=== PATIENT | male | born 1995 | race Caucasian/White ===

== ENCOUNTER 2024-08-20 19:14 | Inpatient (IN) | payer MEDICARE, MEDICAID ==
[~2024-08-20] VITALS: Ht 175.3 cm; Wt 159.0 kg
[2024-08-20 20:12] LABS: HEMATOCRIT 42.7 % (42.0-52.0); HEMOGLOBIN 14.5 g/dl (13.5-17.5); MEAN CORPUSCULAR HEMOGLOBIN 29.7 pg (27.0-33.0); MEAN CORPUSCULAR VOLUME 87.3 fl (80.0-96.0); PLATELET COUNT, AUTOMATED 311 10^3/uL (150-450); RED BLOOD COUNT 4.89 10^6/uL (4.30-6.10); WHITE BLOOD COUNT 11.5 10^3/uL (4.0-10.0)
[2024-08-20 20:22] LABS: METHADONE URINE NEGATIVE (NEGATIVE); OPIATES URINE NEGATIVE (NEGATIVE)
[2024-08-20 20:23] LABS: AMPHETAMINES LEVEL URINE NEGATIVE (NEGATIVE); BARBITURATES URINE NEGATIVE (NEGATIVE); BENZODIAZEPINES URINE NEGATIVE (NEGATIVE); COCAINE METABOLITE URINE NEGATIVE (NEGATIVE); PHENCYCLIDINE URINE NEGATIVE (NEGATIVE)
[2024-08-20 20:24] LABS: CANNABINOIDS URINE POSITIVE (NEGATIVE)
[2024-08-20 20:25] LABS: ETHYL ALCOHOL (ETHANOL) < 0.003 % (0.000-0.010)
[2024-08-20 20:26] LABS: SALICYLATE LEVEL < 3.0 MG/DL (<30)
[2024-08-20 20:27] LABS: ALBUMIN 3.6 G/DL (3.2-5.2); ALKALINE PHOSPHATASE 78 U/L (40-129); ALT/SGPT 40 U/L (7.0-40); AST/SGOT 26 U/L (<34); BILIRUBIN,DIRECT 0.4 MG/DL (<0.4); BILIRUBIN,TOTAL 1.4 MG/DL (0.3-1.2); BLOOD UREA NITROGEN 18 MG/DL (9-23); CALCIUM LEVEL 9.3 MG/DL (8.5-10.1); CARBON DIOXIDE LEVEL 26 MMOL/L (20-31); CHLORIDE LEVEL 105 MMOL/L (98-107); CREATININE FOR GFR 0.85 MG/DL (0.70-1.30); GLOMERULAR FILTRATION RATE > 60.0 (>60); GLUCOSE, FASTING 87 MG/DL (60-100); SODIUM LEVEL 144 MMOL/L (136-145); TOTAL PROTEIN 7.7 G/DL (5.7-8.2)
[2024-08-20 20:29] LABS: THYROID STIMULATING HORMONE 2.107 uIU/ML (0.55-4.78)
[2024-08-20] MEDS ORDERED: LISI10TA22 PO (22:49)
[2024-08-20] MEDS ORDERED: PRAZ1CAP PO (22:49)
[2024-08-20] MEDS ORDERED: HYDR-3363 PO (22:49)
[2024-08-20] MEDS ORDERED: SERT50TA29 PO (22:49)
[2024-08-20] MEDS ORDERED: TRAZ-257 PO (22:49)
[2024-08-20] MEDS ORDERED: ATOR40TA75 PO (22:49)
[2024-08-20] MEDS ORDERED: VITA100093 PO (22:49)
[2024-08-20] MEDS ORDERED: METF500T13 PO (22:49)
[2024-08-20] MEDS ORDERED: SPIR-10 PO (22:49)
[2024-08-20] MEDS ORDERED: ARIS2.4I INJ (22:49)
[2024-08-20] MEDS ORDERED: GABA-284 PO (22:49)
[2024-08-20] MEDS ORDERED: TOPI200T7 PO (22:49)
[2024-08-20] MEDS ORDERED: BUPR150T12 PO (22:49)
[2024-08-20] MEDS ORDERED: MOM 30ML SUSPENSION UDC PO PRN (22:50)
[2024-08-20] MEDS ORDERED: traZODone 50 MG TAB PO PRN (22:50)
[2024-08-20] MEDS ORDERED: MAALOX 30 ML SUSP *UDC PO PRN (22:50)
[2024-08-20] MEDS ORDERED: diphenhydrAMINE 25MG CAP PO PRN (22:50)
[2024-08-20] MEDS ORDERED: IBUPROFEN 400MG TAB PO PRN (22:50)
[2024-08-20 23:30] VITALS: BP 125/68; TEMP 97.5; O2SAT 15
[2024-08-21] MEDS ORDERED: HOME MED LIST COMPLETE! XX SCH (00:45)
[2024-08-21 06:30] VITALS: BP 137/89; TEMP 96.8; O2SAT 99
[2024-08-21] MEDS: NICOTINE 14 MG/24 HR TRANSDERMAL TD SCH (08:24)
[2024-08-21] MEDS ORDERED: PILL CUTTER 1 EACH XX PRN (09:50)
[2024-08-21 11:13] VITALS: BP 126/90
[2024-08-21] MEDS: GABAPENTIN 400MG CAP PO SCH (11:19)
[2024-08-21] MEDS: SERTRALINE HCL 25 MG TABLET PO SCH (11:19)
[2024-08-21] MEDS: buPROPion **XL** TABLET 150MG (WELLBUTRIN XL) PO SCH (11:19)
[2024-08-21] MEDS: TOPIRAMATE (TopAMAX) 100 MG TAB PO SCH (11:19)
[2024-08-21] MEDS: SPIRONOLACTONE 25 MG TAB PO SCH (11:20)
[2024-08-21] MEDS: metFORMIN (GLUCOPHAGE) 500MG TAB PO SCH (13:10)
[2024-08-21 16:11] VITALS: BP 124/80; TEMP 97.7; O2SAT 97
[2024-08-21] MEDS: VITAMIN D 1,000 INTERNATIONAL UNITS TABLET PO SCH (20:18)
[2024-08-21] MEDS: PRAZOSIN 1 MG CAP PO SCH (20:20)
[2024-08-21] MEDS: ATORVASTATIN 20 MG TAB PO SCH (20:21)
[2024-08-21] MEDS: traZODone 100 MG TAB PO SCH (20:21)
[2024-08-22] MEDS: ACETAMINOPHEN 325 MG TAB PO PRN (06:08)
[2024-08-22 06:37] VITALS: BP 161/92; TEMP 97.1; O2SAT 96
[2024-08-22] MEDS: FLUZONE VACCINE TRIVALENT PF(2024-25) 0.5ML SYRINGE IM.IMMUN ONE (11:40)
[2024-08-22] MEDS: OLANZapine ORAL DISINTEGRATING TAB 5MG PO PRN (15:55)
[2024-08-22 16:13] VITALS: BP 126/77; TEMP 96.8; O2SAT 96
[2024-08-23 06:37] VITALS: BP 136/83; TEMP 97.6; O2SAT 97
[2024-08-23 08:55] VITALS: BP 134/88
[2024-08-23 15:50] VITALS: BP 137/81; TEMP 97.6; O2SAT 96
[2024-08-24 06:29] VITALS: BP 147/85; TEMP 97; O2SAT 95
[2024-08-24 08:22] VITALS: BP 132/73
[2024-08-24 15:10] VITALS: BP 122/72; TEMP 97.5; O2SAT 95
[2024-08-25 06:29] VITALS: BP 131/74; TEMP 97; O2SAT 97
[2024-08-26 06:33] VITALS: BP 149/81; TEMP 97.1; O2SAT 95
[2024-08-26 08:29] VITALS: BP 138/85
== END 2024-08-26 12:17 | disposition home or self-care (01) | DRG 883 ==
LOC: M ED 19:14 → M ED INP 22:49 → M PSY 23:16
PROVIDERS: ADMIT Psychiatry & Neurology Neurology; ATTEND Psychiatry & Neurology Psychiatry
DX: F60.3 Borderline personality disorder (principal); R45.851 Suicidal ideations; F79 Unspecified intellectual disabilities; F17.200 Nicotine dependence, unspecified, uncomplicated; E11.9 Type 2 diabetes mellitus without complications; I10 Essential (primary) hypertension; E78.5 Hyperlipidemia, unspecified; E66.812 Obesity, class 2; F10.10 Alcohol abuse, uncomplicated; Z91.52 Personal history of nonsuicidal self-harm; Z79.899 Other long term (current) drug therapy; Z79.84 Long term (current) use of oral hypoglycemic drugs

== ENCOUNTER 2024-08-26 15:44 | Inpatient (IN) | payer MEDICARE, MEDICAID ==
[~2024-08-26] VITALS: Ht 170.2 cm; Wt 165.6 kg
[~2024-08-26 15:44] MED LIST: ARIS2.4I INJ; ATOR40TA75 PO; BUPR150T12 PO; GABA-284 PO; HYDR-3363 PO; LISI10TA22 PO; METF500T13 PO; PRAZ1CAP PO; SERT50TA29 PO; SPIR-10 PO; TOPI200T7 PO; TRAZ-257 PO; VITA100093 PO
[2024-08-26] MEDS ORDERED: LORazepam 2 MG TAB PO PRN (16:10)
[2024-08-26 16:35] LABS: HEMATOCRIT 41.9 % (42.0-52.0); HEMOGLOBIN 14.2 g/dl (13.5-17.5); MEAN CORPUSCULAR HEMOGLOBIN 29.2 pg (27.0-33.0); MEAN CORPUSCULAR HGB CONC 33.9 g/dl (32.0-36.5); MEAN CORPUSCULAR VOLUME 86.2 fl (80.0-96.0); PLATELET COUNT, AUTOMATED 326 10^3/uL (150-450); RED BLOOD COUNT 4.86 10^6/uL (4.30-6.10); WHITE BLOOD COUNT 12.5 10^3/uL (4.0-10.0)
[2024-08-26 17:01] LABS: ETHYL ALCOHOL (ETHANOL) 0.005 % (0.000-0.010)
[2024-08-26 17:03] LABS: ALBUMIN 3.7 G/DL (3.2-5.2); ALKALINE PHOSPHATASE 85 U/L (40-129); ALT/SGPT 44 U/L (7.0-40); AST/SGOT 18 U/L (<34); BILIRUBIN,DIRECT 0.3 MG/DL (<0.4); BILIRUBIN,TOTAL 0.9 MG/DL (0.3-1.2); BLOOD UREA NITROGEN 18 MG/DL (9-23); CARBON DIOXIDE LEVEL 25 MMOL/L (20-31); CHLORIDE LEVEL 108 MMOL/L (98-107); CREATININE FOR GFR 1.08 MG/DL (0.70-1.30); GLOMERULAR FILTRATION RATE > 60.0 (>60); GLUCOSE, FASTING 73 MG/DL (60-100); SALICYLATE LEVEL < 3.0 MG/DL (<30); SODIUM LEVEL 145 MMOL/L (136-145); TOTAL PROTEIN 7.6 G/DL (5.7-8.2)
[2024-08-26 17:05] LABS: THYROID STIMULATING HORMONE 2.524 uIU/ML (0.55-4.78)
[2024-08-26] MEDS: THIAMINE 100 MG TAB PO SCH (17:51)
[2024-08-26] MEDS ORDERED: HOME MED LIST COMPLETE! XX SCH (18:55)
[2024-08-26 19:44] LABS: AMPHETAMINES LEVEL URINE NEGATIVE (NEGATIVE); BARBITURATES URINE NEGATIVE (NEGATIVE); BENZODIAZEPINES URINE NEGATIVE (NEGATIVE)
[2024-08-26 19:45] LABS: CANNABINOIDS URINE NEGATIVE (NEGATIVE); COCAINE METABOLITE URINE NEGATIVE (NEGATIVE); METHADONE URINE NEGATIVE (NEGATIVE); OPIATES URINE NEGATIVE (NEGATIVE); PHENCYCLIDINE URINE NEGATIVE (NEGATIVE)
[2024-08-27] MEDS: TOPIRAMATE (TopAMAX) 100 MG TAB PO SCH (09:07)
[2024-08-27] MEDS: buPROPion **XL** TABLET 150MG (WELLBUTRIN XL) PO SCH (09:07)
[2024-08-27] MEDS: metFORMIN (GLUCOPHAGE) 500MG TAB PO SCH (09:08)
[2024-08-27] MEDS: FOLIC ACID 1MG TAB PO SCH (09:08)
[2024-08-27] MEDS: SERTRALINE HCL 25 MG TABLET PO SCH (09:08)
[2024-08-27] MEDS: MULTIVITAMINS/MINERALS THERAP 1 TAB PO SCH (09:08)
[2024-08-27] MEDS: SPIRONOLACTONE 25 MG TAB PO SCH (09:08)
[2024-08-27] MEDS: GABAPENTIN 400MG CAP PO SCH (09:08)
[2024-08-27] MEDS ORDERED: ACETAMINOPHEN 325 MG TAB PO PRN (20:25)
[2024-08-27] MEDS ORDERED: MAALOX 30 ML SUSP *UDC PO PRN (20:25)
[2024-08-27] MEDS ORDERED: diphenhydrAMINE 25MG CAP PO PRN (20:25)
[2024-08-27] MEDS ORDERED: MOM 30ML SUSPENSION UDC PO PRN (20:25)
[2024-08-27] MEDS: VITAMIN D 1,000 INTERNATIONAL UNITS TABLET PO SCH (22:25)
[2024-08-27] MEDS: ATORVASTATIN 20 MG TAB PO SCH (22:25)
[2024-08-27] MEDS: PRAZOSIN 1 MG CAP PO SCH (22:26)
[2024-08-27] MEDS: traZODone 100 MG TAB PO SCH (22:26)
[2024-08-28] MEDS: IBUPROFEN 400MG TAB PO PRN (03:37)
[2024-08-28 06:25] VITALS: BP 119/68; TEMP 97.1; O2SAT 95
[2024-08-28] MEDS: NICOTINE 14 MG/24 HR TRANSDERMAL TD SCH (08:45)
[2024-08-28 15:30] VITALS: BP 138/75; TEMP 97.9; O2SAT 95
[2024-08-29 06:36] VITALS: BP 109/80; TEMP 97; O2SAT 98
[2024-08-29 15:30] VITALS: BP 139/80; TEMP 97.2; O2SAT 96
[2024-08-29] MEDS: OLANZapine ORAL DISINTEGRATING TAB 5MG PO PRN (17:38)
[2024-08-29 23:39] VITALS: BP 128/75; TEMP 97.2; O2SAT 96
[2024-08-30 07:01] VITALS: BP 100/62; TEMP 97.5; O2SAT 94
[2024-08-30 08:21] VITALS: BP 133/71
[2024-08-30 17:59] VITALS: BP 136/72; TEMP 97; O2SAT 95
[2024-08-31 07:14] VITALS: BP 131/84; TEMP 96.4; O2SAT 97
[2024-08-31 08:13] VITALS: BP 136/94
[2024-08-31 16:08] VITALS: BP 122/85; TEMP 96.7; O2SAT 98
[2024-09-01 06:50] VITALS: BP 102/52; TEMP 97.1; O2SAT 100
[2024-09-01 08:04] VITALS: BP 166/93
[2024-09-01 08:05] VITALS: BP 166/93
[2024-09-01 10:20] VITALS: BP 116/65
[2024-09-25] MEDS ORDERED: ARIPIPRAZOLE LAUROXIL 882 MG/3.2 ML IM SCH (09:00)
== END 2024-09-01 16:32 | disposition home or self-care (01) | DRG 885 ==
LOC: M ED 15:44 → M ED INP 08-27 20:21 → M PSY 08-27 21:41
PROVIDERS: ADMIT Psychiatry & Neurology Neurology; ATTEND Psychiatry & Neurology Neurology
DX: F31.4 Bipolar disorder, current episode depressed, severe, without psychotic features (principal); R45.851 Suicidal ideations; F41.9 Anxiety disorder, unspecified; F60.3 Borderline personality disorder; F79 Unspecified intellectual disabilities; I10 Essential (primary) hypertension; E78.5 Hyperlipidemia, unspecified; E11.9 Type 2 diabetes mellitus without complications; Z79.84 Long term (current) use of oral hypoglycemic drugs; Z79.899 Other long term (current) drug therapy; Z91.52 Personal history of nonsuicidal self-harm

== ENCOUNTER 2024-09-08 21:41 | Emergency (ER) | payer MEDICARE, MEDICAID ==
[~2024-09-08] VITALS: Ht 182.9 cm; Wt 165.9 kg
[2024-09-08 21:46] VITALS: TEMP 97.8
[2024-09-09 00:05] LABS: KETONE, URINE AUTO RFX NEGATIVE (NEGATIVE); LEUKOCYTE ESTERASE UR AUTO RFX NEGATIVE (NEGATIVE); MUCUS, URINE RFX SMALL (NEGATIVE); NITRITE, URINE AUTO RFX NEGATIVE (NEGATIVE); RBC, URINE AUTO RFX 0 /HPF (0-3); SQUAM EPITHELIAL CELL UR AURFX 0 /HPF (0-6); WBC, URINE AUTO RFX 1 /HPF (0-3)
[2024-09-09 00:31] LABS: LIPASE 34 U/L (12-53)
[2024-09-09 00:33] LABS: ALBUMIN 3.6 G/DL (3.2-5.2); ALKALINE PHOSPHATASE 83 U/L (40-129); ALT/SGPT 29 U/L (7.0-40); AST/SGOT 18 U/L (<34); BILIRUBIN,DIRECT 0.3 MG/DL (<0.4); BLOOD UREA NITROGEN 16 MG/DL (9-23); CALCIUM LEVEL 9.1 MG/DL (8.5-10.1); CARBON DIOXIDE LEVEL 23 MMOL/L (20-31); CHLORIDE LEVEL 112 MMOL/L (98-107); CREATININE FOR GFR 1.03 MG/DL (0.70-1.30); GLOMERULAR FILTRATION RATE > 60.0 (>60); GLUCOSE, FASTING 95 MG/DL (60-100); POTASSIUM SERUM 3.8 MMOL/L (3.5-5.1); SODIUM LEVEL 143 MMOL/L (136-145); TOTAL PROTEIN 7.5 G/DL (5.7-8.2)
[2024-09-09 00:37] LABS: BASO # 0.1 10^3/uL (0.0-0.2); BASO % 0.7 % (0.0-1.0); EOS # 0.2 10^3/uL (0.0-0.5); EOS % 1.4 % (0.0-3.0); HEMATOCRIT 39.1 % (42.0-52.0); HEMOGLOBIN 13.1 g/dl (13.5-17.5); LYMPH # 3.3 10^3/uL (1.5-5.0); LYMPH % 25.5 % (24.0-44.0); MEAN CORPUSCULAR HEMOGLOBIN 29.4 pg (27.0-33.0); MEAN CORPUSCULAR HGB CONC 33.5 g/dl (32.0-36.5); MEAN CORPUSCULAR VOLUME 87.7 fl (80.0-96.0); MONO % 7.8 % (2.0-8.0); NEUTROPHILS # 8.2 10^3/uL (1.5-8.5); NEUTROPHILS % 64.2 % (36.0-66.0); PLATELET COUNT, AUTOMATED 344 10^3/uL (150-450); RED BLOOD COUNT 4.46 10^6/uL (4.30-6.10); WHITE BLOOD COUNT 12.8 10^3/uL (4.0-10.0)
[2024-09-09] MEDS: KETOROLAC 60MG 2ML VIAL IM ONE (03:54)
[2024-09-09] MEDS ORDERED: LIDO5DIS41 TD (04:29)
[2024-09-09] MEDS ORDERED: IBUP-1022 PO (04:29)
[2024-09-09] MEDS: LIDOCAINE 5% (LIDODERM) PATCH TD ONE (04:58)
[2024-09-09 05:11] VITALS: BP 102/52; O2SAT 99
== END 2024-09-09 05:13 | disposition home or self-care (01) ==
LOC: M ED 21:41
DX: R10.9 Unspecified abdominal pain (principal); N20.0 Calculus of kidney; I11.0 Hypertensive heart disease with heart failure; I50.9 Heart failure, unspecified; E11.9 Type 2 diabetes mellitus without complications; E78.5 Hyperlipidemia, unspecified; G43.909 Migraine, unspecified, not intractable, without status migrainosus; F32.A Depression, unspecified; K40.90 Unilateral inguinal hernia, without obstruction or gangrene, not specified as recurrent; Z79.899 Other long term (current) drug therapy
CPT/HCPCS: 74176; 80048; 80076; 81001; 83690; 85025; 96372; 99284; J1885